=== PATIENT | male | born 1980 | race African-American/Black ===

== ENCOUNTER 2025-02-11 10:39 | Emergency (ER) | payer OTHER ==
[~2025-02-11] VITALS: Ht 172.7 cm; Wt 95.0 kg
[~2025-02-11 10:39] MED LIST: NAPR-681 PO
[2025-02-11 10:44] VITALS: O2SAT 100
[2025-02-11 10:45] VITALS: BP 131/70; PULSE 62; RESP 18; TEMP 36.7; O2SAT 99
[2025-02-11 11:08] LABS: HEMATOCRIT 46.1 % (42.0-52.0); HEMOGLOBIN 15.5 g/dL (14.0-18.0); MEAN CORPUSCULAR HEMOGLOBIN 32.5 pg (28.0-32.0); MEAN CORPUSCULAR HGB CONC 33.7 g/dL (31.0-37.0); MEAN CORPUSCULAR VOLUME 96.5 fL (80.0-94.0); PLATELET 190 x1000/uL (130-400); RED BLOOD CELL COUNT 4.78 mill/uL (4.7-6.1); RED CELL DISTRIBUTION WIDTH 13.2 % (11.6-14.6); WHITE BLOOD COUNT 5.9 x1000/uL (4.5-11.0)
[2025-02-11 11:23] LABS: CARBON DIOXIDE 24 mEq/L (21-32); CHLORIDE 110 mEq/L (98-107); POTASSIUM 3.8 mEq/L (3.5-5.1); SODIUM 140 mEq/L (136-145)
[2025-02-11 11:24] LABS: CALCIUM 9.4 mg/dL (8.7-10.4)
[2025-02-11 11:28] LABS: CREATININE 0.8 mg/dL (0.6-1.3); GLUCOSE 91 mg/dL (70-105)
[2025-02-11 11:29] LABS: TROPONIN I HIGH SENSITIVITY 4 ng/L (3.0-53); UREA NITROGEN BLOOD 9 mg/dL (9-23)
[2025-02-11 11:30] LABS: ALANINE AMINOTRANSFERASE 21 IU/L (10-49); ALBUMIN 4.4 g/dL (3.2-4.8); ASPARTATE AMINOTRANSFERASE 20 IU/L (<34)
[2025-02-11 11:31] LABS: BILIRUBIN TOTAL 1.1 mg/dL (0.1-1.0); PROTEIN TOTAL 7.3 g/dL (6.0-8.3)
[2025-02-11 11:59] VITALS: TEMP 98
[2025-02-11] MEDS: ACETAMINOPHEN 325MG TABLET PO ONE (11:59)
[2025-02-11 12:11] LABS: CLARITY URINE CLEAR (CLEAR); COLOR URINE YELLOW (YELLOW); GLUCOSE URINE NEGATIVE (NEGATIVE); KETONES URINE 2+ (NEGATIVE); LEUKOCYTE ESTERASE URINE 2+ (NEGATIVE); NITRITE URINE NEGATIVE (NEGATIVE); OCCULT BLOOD URINE 1+ (NEGATIVE); PH URINE 6.5 (4.5-8.0); PROTEIN URINE NEGATIVE (NEGATIVE); SPECIFIC GRAVITY URINE 1.023 (1.005-1.030)
[2025-02-11 12:40] LABS: MUCUS URINE 3+ /lpf (NONE/TRACE); SQUAMOUS EPITHELIAL CELL URINE 1+ /lpf (RARE/1+)
[2025-02-11 12:43] LABS: BACTERIA URINE 2+; WBC URINE 25-50 /hpf (0-2)
[2025-02-11] MEDS ORDERED: CEPH500C2 MT (12:46)
== END 2025-02-11 13:10 | disposition home or self-care (01) ==
LOC: ER 10:39
DX: R51.9 Headache, unspecified (principal); I49.9 Cardiac arrhythmia, unspecified
CPT/HCPCS: 36415; 80053; 81003; 84484; 85027; 93005; 99284

== ENCOUNTER 2025-10-05 08:55 | Emergency (ER) | payer OTHER ==
[~2025-10-05] VITALS: Ht 177.8 cm; Wt 90.0 kg
[~2025-10-05 08:55] MED LIST changes: +CEPH500C2 MT
[2025-10-05 09:09] VITALS: TEMP 36.9; O2SAT 100
[2025-10-05] MEDS ORDERED: DOXY100T2 MT (10:05)
[2025-10-05] MEDS: CEFTRIAXONE SODIUM 500MG VIAL IM NR (10:44)
[2025-10-05] MEDS: LIDOCAINE HCL 1% 20ML VIAL INFIL ONE (11:08)
[2025-10-05 11:30] VITALS: BP 138/80; PULSE 64; RESP 14; O2SAT 98
[2025-10-05 12:03] LABS: HEPATITIS C AB NON REACTIVE (Neg) (Negative)
== END 2025-10-05 11:50 | disposition home or self-care (01) ==
LOC: ER 08:55
DX: A64 Unspecified sexually transmitted disease (principal); F20.9 Schizophrenia, unspecified; I10 Essential (primary) hypertension
CPT/HCPCS: 87340; 86706; 86592; 36415; 86705; 96372; 99283; J0696; J2003; Z7610